=== PATIENT | female | born 1985 | race Two or more races ===

== ENCOUNTER 2023-06-19 11:20 | Outpatient (CLI) | payer OTHER | END 2023-06-19 11:24 | disposition home or self-care (01) | LOC: PRENATAL 11:20 | PROVIDERS: ATTEND Obstetrics & Gynecology Maternal & Fetal Medicine | DX: O36.80X0 Pregnancy with inconclusive fetal viability, not applicable or unspecified (principal); Z36.82 Encounter for antenatal screening for nuchal translucency; O09.519 Supervision of elderly primigravida, unspecified trimester; O34.10 Maternal care for benign tumor of corpus uteri, unspecified trimester; Z3A.14 14 weeks gestation of pregnancy ==

== ENCOUNTER 2023-10-27 09:28 | Outpatient (CLI) | payer OTHER | END 2023-10-27 09:29 | disposition home or self-care (01) | LOC: PRENATAL 09:28 | PROVIDERS: ATTEND Obstetrics & Gynecology Maternal & Fetal Medicine | DX: O26.843 Uterine size-date discrepancy, third trimester (principal); O36.8130 Decreased fetal movements, third trimester, not applicable or unspecified; O34.13 Maternal care for benign tumor of corpus uteri, third trimester; Z3A.33 33 weeks gestation of pregnancy ==